=== PATIENT | male | born 1965 | race Caucasian/White ===

== ENCOUNTER 2022-12-09 06:19 | Day surgery (SDC) | payer OTHER, BC ==
[~2022-12-09] VITALS: Ht 182.9 cm; Wt 114.4 kg
[~2022-12-09 06:19] MED LIST: ROSU10TA PO; Viagra100 MG
[2022-12-09] MEDS ORDERED: Prinivil10 MG PO (06:38)
--- NOTE | 2022-12-09 06:43 | NUR ---
12/09/22 0643 Sylvia Paez AT 0638 PLEDGET AT 0617
--- NOTE | 2022-12-09 08:08 | NUR ---
12/09/22 0808 MIKAEL RIGGINS iv out of left hand at 0807. canula intact, pt tolerated procedure well.
[2022-12-09 08:28] VITALS: BP 142/80
== END 2022-12-09 08:22 | disposition home or self-care (01) ==
LOC: ORSCSDS 06:19
PROVIDERS: Ophthalmology
PROC: 08DJ3ZZ Extraction of Right Lens, Percutaneous Approach (ICD-10-PCS; principal; 2022-12-09 07:30)
DX: H25.11 Age-related nuclear cataract, right eye (principal); I10 Essential (primary) hypertension; Z79.899 Other long term (current) drug therapy
CPT/HCPCS: J2001; J2250; J3010; J3301; J7040; V2632

== ENCOUNTER 2022-12-30 07:02 | Day surgery (SDC) | payer OTHER, BC ==
[~2022-12-30] VITALS: Ht 182.9 cm; Wt 111.8 kg
[~2022-12-30 07:02] MED LIST changes: +Prinivil10 MG PO
--- NOTE | 2022-12-30 07:49 | NUR ---
12/30/22 0749 Sylvia Paez AT 0743 KEVYN AT 0729
[2022-12-30 08:58] VITALS: BP 116/70
--- NOTE | 2022-12-30 09:08 | NUR ---
12/30/22 0908 [facility]NL
== END 2022-12-30 09:13 | disposition home or self-care (01) ==
LOC: ORSCSDS 07:02
PROVIDERS: Ophthalmology
PROC: 08DK3ZZ Extraction of Left Lens, Percutaneous Approach (ICD-10-PCS; principal; 2022-12-30 08:30)
DX: H25.12 Age-related nuclear cataract, left eye (principal); I10 Essential (primary) hypertension; Z79.899 Other long term (current) drug therapy
CPT/HCPCS: A9270; J2250; J3010; J3301; J7040; V2632

== ENCOUNTER 2024-09-17 13:57 | Emergency (ER) | payer OTHER, BC ==
[~2024-09-17] VITALS: Ht 182.9 cm; Wt 103.4 kg
[2024-09-17 14:05] VITALS: BP 157/90
[2024-09-17] MEDS ORDERED: Ibuprofen 400 MG Tab PO ONE (14:10)
== END 2024-09-17 15:40 | disposition home or self-care (01) ==
LOC: ER 13:57
DX: S20.212A Contusion of left front wall of thorax, initial encounter (principal); S39.012A Strain of muscle, fascia and tendon of lower back, initial encounter; I10 Essential (primary) hypertension; Z79.899 Other long term (current) drug therapy; V43.62XA Car passenger injured in collision with other type car in traffic accident, initial encounter
CPT/HCPCS: 71046; 99284; A9270